=== PATIENT | female | born 2000 | race Caucasian/White ===

== ENCOUNTER 2022-05-28 00:37 | Emergency (ER) | payer SELFPAY ==
[2022-05-28 01:55] LABS: ESTIMATED GFR 128 mL/min (>60)
[2022-05-28 01:56] LABS: ACETAMINOPHEN 0 ug/mL (10-30)
== END 2022-05-28 06:00 | disposition home or self-care (01) ==
LOC: JD.ED 00:37
DX: T43.592A Poisoning by other antipsychotics and neuroleptics, intentional self-harm, initial encounter (principal); F32.9 Major depressive disorder, single episode, unspecified; Z20.822 Contact with and (suspected) exposure to COVID-19
CPT/HCPCS: 36415; 80053; 80143; 80179; 80306; 80307; 81025; 83735; 84443; 85007; 85027; 93005; 93010; 99284; 99285; U0002